=== PATIENT | female | born 1995 | race African-American/Black ===

== ENCOUNTER 2018-04-14 19:05 | Emergency (ER) | payer MEDICAID ==
[~2018-04-14] VITALS: Ht 165.1 cm; Wt 55.8 kg
[2018-04-14 19:53] VITALS: BP 110/58
== END 2018-04-14 22:28 | disposition left against medical advice (07) ==
LOC: ER 19:13
DX: R07.9 Chest pain, unspecified (principal); Z53.21 Procedure and treatment not carried out due to patient leaving prior to being seen by health care provider
CPT/HCPCS: 93005